=== PATIENT | male | born 1985 | race Caucasian/White ===

== ENCOUNTER 2016-12-23 13:45 | Day surgery (SDC) | payer OTHER ==
[~2016-12-23] VITALS: Ht 175.3 cm; Wt 107.4 kg
[2016-12-23 14:35] VITALS: Ht 175.3 cm; Wt 107.4 kg
[2016-12-23] MEDS ORDERED: PROPOFOL 40 ML ONE (14:35)
[2016-12-23 14:43] VITALS: BP 124/80; PULSE 73; RESP 16
[2016-12-23] MEDS ORDERED: PROPOFOL 20 ML ONE ×2 (14:58)
[2016-12-23] MEDS ORDERED: METHOTREXATE SODIUM PO (15:23)
[2016-12-23] MEDS ORDERED: REMICADE PO (15:23)
[2016-12-23] MEDS ORDERED: TRAMADOL PO (15:23)
--- NOTE | 2016-12-24 05:44 | GILP ---
DATE OF PROCEDURE: 12/23/2016 PROCEDURE PERFORMED: Esophagogastroduodenoscopy. PREOP DIAGNOSIS: The patient presenting with a history of chronic abdominal discomfort, chronic heartburn, rule out peptic ulcer disease, acid reflux disease. POSTOP DIAGNOSIS: 1. Multiple distal esophageal erosions with erosive esophagitis. 2. Patchy gastritis. DESCRIPTION OF PROCEDURE: After informed written consent is obtained, the patient was asked to lie in the left lateral side. Intravenous anesthesia was given by anesthesiologist, Dr. Cárdenas. When the patient became somnolent Olympus video upper endoscope was introduced into the oropharynx and then into the esophagus. Esophagus showed multiple linear erosions with the surrounding esophagitis. Photographs were obtained. Biopsies were done. Scope at this time was advanced into the stomach. Stomach showed evidence of several areas of erythema indicating patchy gastritis. Duodenum was examined up to the end of the 3rd portion, which appeared normal. The scope at this time was withdrawn. Biopsies were done from the antrum, the lesser curvature and the fundus to rule out H pylori infection. The scope at this time was withdrawn and the procedure was terminated. PLAN: Recommend omeprazole 40 mg twice a day and also wait for the pathology report. Dictated By: Cr Dickson MD /heike/andre /Document#: [id number] ; [facility]
--- NOTE | 2016-12-24 05:44 | GILP ---
DATE OF PROCEDURE: 12/23/2016 PROCEDURE: Flexible sigmoidoscopy. PREOP DIAGNOSIS: Patient with a history of a total colectomy for inflammatory bowel disease. The patient at this time has irregular bowel movements, rule out colitis, rule out anastomotic ulcer disease, rule out inflammatory bowel disease. POSTOP DIAGNOSIS: Status post ileocolonic anastomosis with total colectomy. Ulcers noted on the anastomosis itself and also few ulcers noted in the ilium proximal to the anastomosis. DESCRIPTION OF PROCEDURE: After informed written consent was obtained. The patient was asked to lay in the left lateral position. Intravenous anesthesia was given by anesthesiologist, Dr. Cárdenas. When the patient became somnolent, the Olympus video upper endoscope was introduced into the rectum. At about 15 cm from the anus, there was evidence of an ileocolonic anastomosis. There was a blind pouch noted to the 1 side of the anastomosis. On the other side of the anastomosis the small bowel was examined. There was evidence of multiple ulcers noted kind of next to each other on the anastomotic area. Multiple biopsies and photographs were obtained. The small bowel proximal to the anastomosis also showed evidence of a localized areas of ulcers measuring about 1 cm in diameter, biopsies were obtained. The rest of the ileum appeared normal. The rest of the rectum appeared normal. Endoscope at this time was withdrawn. On the way out no additional abnormalities detected and the procedure was terminated. RECOMMENDATIONS: Treat the patient with Asacol 800 mg p.o. b.i.d. Wait for the pathology report. Dictated By: Cr Dickson MD /heike/tessa /Document#: [id number] ; [place], [place]
== END 2016-12-23 19:29 | disposition home or self-care (01) ==
LOC: GIL 13:45
PROVIDERS: ATTEND Internal Medicine Gastroenterology
DX: K22.10 Ulcer of esophagus without bleeding (principal); K29.70 Gastritis, unspecified, without bleeding; K51.80 Other ulcerative colitis without complications; E66.9 Obesity, unspecified; Z68.35 Body mass index [BMI] 35.0-35.9, adult
CPT/HCPCS: 43239; 45331; Z7610; 88305; 88312; 88313

== ENCOUNTER 2017-12-05 01:35 | Observation (INO) | END 2017-12-05 17:05 | disposition home or self-care (01) ==

== ENCOUNTER 2018-04-04 11:54 | Day surgery (SDC) | END 2018-04-04 14:32 | disposition home or self-care (01) ==